=== PATIENT | male | born 1975 | race Caucasian/White ===

== ENCOUNTER 2023-04-09 20:51 | Emergency (ER) | payer OTHER ==
[2023-04-09 21:07] VITALS: BP 132/81; PULSE 102; RESP 18; TEMP 98; BMI 30.7
[2023-04-09] MEDS ORDERED: KETOROLAC TROMETHAMINE 30 MG/1 ML VIAL IM ONE (23:19)
[2023-04-09] MEDS ORDERED: KETOROLAC TROMETHAMINE 30 MG/1 ML VIAL ONE (23:57)
== END 2023-04-10 00:21 | disposition home or self-care (01) ==
LOC: JER 20:51 → JERFT 20:51 → JER 04-10 00:21
PROC: 3E0233Z Introduction of Anti-inflammatory into Muscle, Percutaneous Approach (ICD-10-PCS; principal; 2023-04-09)
DX: M54.2 Cervicalgia (principal); G44.209 Tension-type headache, unspecified, not intractable; M54.50 Low back pain, unspecified; S00.81XA Abrasion of other part of head, initial encounter; V49.40XA Driver injured in collision with unspecified motor vehicles in traffic accident, initial encounter; Y93.I9 Activity, other involving external motion
CPT/HCPCS: 72040-TC; 72100-TC-FY; 99284-25